=== PATIENT | male | born 1985 | race American Indian/Alaskan Native ===

== ENCOUNTER 2016-08-03 08:09 | Emergency (ER) | payer BC ==
[2016-08-03 08:27] VITALS: BP 126/83
--- NOTE | 2016-08-03 10:11 | Emergency Department Report ---
HPI - General Chief Complaint: Extremity Injury, Lower - HPI HPI: 30-year-old male comes in with complaint of left thigh pain since yesterday. He denies any injury or trauma. He reports that the pain is worse when he walks or he evidences leg to the left or right. He denies any testicular pain no testicular swelling no nausea no vomiting no discoloration of his thigh or testicle he denies it being warm or swollen. ED Past Medical Hx - Past Medical History Previous Medical History?: No - Surgical History Additional Surgical History: RIGHT ANKLE. LEFT ARM SURGERY - Social History Smoking Status: Current Every Day Smoker Substance Use Type: Alcohol - Medications Home Medications: Home Medications Medication Instructions Recorded Confirmed Last Taken Type No Known Home Medications [No 08/03/16 08/03/16 Unknown History Reported Home Medications] ED Review of Systems ROS: Stated complaint: SHARP L LEG PAIN Other details as noted in HPI Physical Exam - Physical Exam Vital Signs: Vital Signs 08/03/16 08:20 Temperature 97.9 F Pulse Rate 69 Respiratory 18 Rate Blood Pressure 126/83 O2 Sat by Pulse 99 Oximetry General: GENERAL: Alert and oriented x3, no apparent distress, Normal Gait, atraumatic. HEAD: Head is normocephalic and a-traumatic. LUNGS: Symetrical with respiration, No wheezing, no rales or crackles, CTAB. HEART: S1, S2 present, regular rate and rhythm without murmur, no rubs, no gallops. UROGENITAL: No scrotal mass, Scrotum non tender to palpation bilaterally, no hernia, no scars or penile discharge. EXTREMITIES/MUSCULOSKELETAL: No cyanosis, clubbing, rash, lesions or edema. Pain elicited with varus and valgus movement. UE/LE Pulses 2+ bilaterally. LE and UE 5+ strength bilaterally NEUROLOGIC: No focal Deficit, Cranial nerves II through XII are grossly intact. No loss of sensation, No facial droop, PSYCHIATRIC: Mood is congruent with affect, SKIN: Warm and dry, No lesions, No ulceration or induration present ED Course Vital Signs 08/03/16 08:20 Temperature 97.9 F Pulse Rate 69 Respiratory 18 Rate Blood Pressure 126/83 O2 Sat by Pulse 99 Oximetry Critical care attestation.: If time is entered above; I have spent that time in minutes in the direct care of this critically ill patient, excluding procedure time. ED Disposition Condition: Stable
[2016-08-03] MEDS ORDERED: MOTRIN PO ONE (11:43)
== END 2016-08-03 13:36 | disposition left against medical advice (07) ==
LOC: ED 08:09
DX: M79.652 Pain in left thigh (principal); F17.200 Nicotine dependence, unspecified, uncomplicated
CPT/HCPCS: 99282